=== PATIENT | female | born 2000 | race African-American/Black ===

== ENCOUNTER 2021-06-06 07:58 | Day surgery (SDC) | payer OTHER ==
[2021-06-06] MEDS ORDERED: Acetaminophen 500 MG TAB PO SCH (08:30)
[2021-06-06] MEDS ORDERED: Iron Sucrose Complex 500 MG in Sodium Chloride 0.9% 250 ML 250 ML IVPB SCH (09:00)
[2021-06-06] MEDS ORDERED: hydrALAZINE 20 MG/ML VIAL SLOW IVP PRN (09:02)
[2021-06-09 20:50] LABS: Chlam.trachomatis by PCR,Urine DETECTED (NotDetected)
== END 2021-06-06 13:20 | disposition home or self-care (01) ==
LOC: CSHLD/OP 07:58
PROVIDERS: ATTEND Family Medicine
DX: O99.012 Anemia complicating pregnancy, second trimester (principal); D50.9 Iron deficiency anemia, unspecified; O10.012 Pre-existing essential hypertension complicating pregnancy, second trimester; O99.212 Obesity complicating pregnancy, second trimester; Z3A.26 26 weeks gestation of pregnancy; Z79.899 Other long term (current) drug therapy
CPT/HCPCS: 87491; 87591; 96365; 96366; 99282; J1756; J7050

== ENCOUNTER 2021-07-22 19:59 | Inpatient (IN) | payer OTHER ==
[2021-07-22] MEDS ORDERED: hydrALAZINE 20 MG/ML VIAL ONE (20:58)
[2021-07-22] MEDS: hydrALAZINE 20 MG/ML VIAL SLOW IVP PRN (21:07)
[2021-07-22] MEDS ORDERED: Ondansetron PF 4 MG/2 ML Vial IVP PRN (21:09)
[2021-07-22] MEDS ORDERED: Acetaminophen 500 MG TAB PO PRN (21:09)
[2021-07-22] MEDS ORDERED: Promethazine HCl 25 MG/ML VIAL IM PRN (21:09)
[2021-07-22] MEDS ORDERED: Calcium Gluc 4.6 MEQ/10 ML (100 MG/ML) SLOW IVP PRN (21:09)
[2021-07-22] MEDS ORDERED: Magnesium Sulfate 20 GM/WATER 500 ML BAG IVPB SCH (21:15)
[2021-07-22 21:58] LABS: #Monocytes 0.6 10x3/uL (0.0-1.1); #Neutrophils 5.4 10x3/uL (1.5-8.4); %Basophils 0.1 % (0.0-2.0); %Eosinophils 0.3 % (0.0-6.0); %Lymphocytes 23.2 % (18.0-47.0); %Monocytes 7.3 % (0.0-10.0); %Neutrophils 68.7 % (40.0-75.0); Hemoglobin 9.9 g/dL (12.0-15.5); Mean Corpuscular HGB CONC 32.7 g/dL (32.0-36.0); Mean Corpuscular Volume 85.6 fl (81.6-98.3); Mean Platelet Volume 11.7 fl (7.4-10.4); Platelet Count 245 10x3/uL (150-450); RBC Distribution Width 13.1 % (11.5-14.5); Red Blood Cell (RBC) Count 3.54 10x6/uL (3.90-5.03); White Blood Cell (WBC) Count 7.8 10x3/uL (3.5-10.5)
[2021-07-22] MEDS: Betamet Acet/Betamet Na Ph 30 MG/5 ML VIAL IM SCH (22:00)
[2021-07-22 22:11] LABS: ALT (SGPT) Less than 6 U/L (8-55); AST (SGOT) 11 U/L (5-34); Albumin 3.6 g/dL (3.5-5.0); Alkaline Phosphatase 124 U/L (40-110); Anion Gap 14 mmol/L (10-20); BUN (Urea Nitrogen) 4 mg/dL (7.0-18.7); Bilirubin, Total 0.2 mg/dL (0.2-1.2); Calc. Creatinine Clearance 0 mL/min (70-130); Calcium 8.6 mg/dL (7.8-10.44); Carbon Dioxide 21 mmol/L (22-29); Chloride 106 mmol/L (98-107); Globulin 3.2 g/dL (2.4-3.5); Glucose 94 mg/dL (70-105); Potassium 3.5 mmol/L (3.5-5.1); Protein, Total 6.8 g/dL (6.0-8.3); Sodium 137 mmol/L (136-145)
[2021-07-22 22:13] LABS: Bilirubin Neg (Negative); Blood, Urine Negative (Negative); Clarity Clear (Clear); Glucose, Urine (Dipstick) Normal (Negative); Ketone, Urine 5 mg/dL (Negative); Leukocyte Negative (Negative); Nitrite Negative (Negative); Protein, Urine (Dipstick) 30 mg/dl (Neg-Trace); pH, Urine 6.5 (5.0-9.0)
[2021-07-22 22:21] LABS: Urine Culture Reflex No No
[2021-07-22 22:23] LABS: Bacteria/HPF Rare-Few HPF (None Seen); RBC/HPF 0-3 HPF (0-3); WBC/HPF 0-3 HPF (0-3)
[2021-07-22 22:30] LABS: Syphilis Antibody Nonreactive (Nonreactive); Syphilis Antibody Index 0.13 S/CO (<1.00 Non-Reactive)
[2021-07-22 22:31] LABS: HIV (1/2) Antibody/Antigen Non-Reactive (NonReactive); HIV 1/2 INDEX 0.17 S/CO (<1.00); Hep B Surf Ag Non-Reactive S/CO (NonReactive)
[2021-07-22 22:32] LABS: Creatinine, Urine 229.94 mg/dL (47-110)
[2021-07-22 22:38] LABS: HBSAg Index 0.18 S/CO (0-0.99)
[2021-07-22 23:41] LABS: SARS-CoV-2 NAA Rapid Test Not Detected (NotDetected)
[2021-07-23] MEDS: hydrALAZINE 20 MG/ML VIAL SLOW IVP PRN (00:43)
[2021-07-23] MEDS ORDERED: Magnesium Sulfate 20 gm/500 ml 20 GM/500 ML BAG ONE ×2 (02:09→08:44)
[2021-07-23 07:01] LABS: #Monocytes 0.1 10x3/uL (0.0-1.1); #Neutrophils 6.2 10x3/uL (1.5-8.4); %Monocytes 1.5 % (0.0-10.0); %Neutrophils 84.9 % (40.0-75.0); Hemoglobin 10.1 g/dL (12.0-15.5); Mean Corpuscular HGB CONC 32.6 g/dL (32.0-36.0); Mean Corpuscular Hemoglobin 28.1 pg (27.0-33.0); Mean Corpuscular Volume 86.4 fl (81.6-98.3); Platelet Count 247 10x3/uL (150-450); RBC Distribution Width 13.2 % (11.5-14.5); Red Blood Cell (RBC) Count 3.59 10x6/uL (3.90-5.03); White Blood Cell (WBC) Count 7.3 10x3/uL (3.5-10.5)
[2021-07-23 07:03] LABS: ALT (SGPT) Less than 6 U/L (8-55); AST (SGOT) 13 U/L (5-34); Albumin 3.4 g/dL (3.5-5.0); Alkaline Phosphatase 119 U/L (40-110); Anion Gap 14 mmol/L (10-20); BUN (Urea Nitrogen) Less than 4 mg/dL (7.0-18.7); Bilirubin, Total 0.3 mg/dL (0.2-1.2); Calc. Creatinine Clearance 242 mL/min (70-130); Calcium 7.9 mg/dL (7.8-10.44); Carbon Dioxide 18 mmol/L (22-29); Chloride 108 mmol/L (98-107); Globulin 3.6 g/dL (2.4-3.5); Glucose 115 mg/dL (70-105); Potassium 3.9 mmol/L (3.5-5.1); Sodium 136 mmol/L (136-145)
[2021-07-23] MEDS ORDERED: Prenatal Vitamin 1 TAB PO SCH (09:45)
[2021-07-23] MEDS ORDERED: Ferrous Sulfate 325 MG TAB PO SCH (09:45)
[2021-07-23] MEDS: Aspirin 81 mg Enteric Coated Tablet PO SCH (11:05)
[2021-07-23] MEDS ORDERED: Labetalol 100 MG TAB PO SCH (14:15)
[2021-07-23] MEDS: Ferrous Sulfate 325 MG TAB PO SCH (17:32)
[2021-07-23] MEDS: Labetalol 100 MG TAB PO SCH (21:49)
[2021-07-23] MEDS: Betamet Acet/Betamet Na Ph 30 MG/5 ML VIAL IM SCH (21:49)
[2021-07-24 06:10] LABS: AST (SGOT) 10 U/L (5-34); Calc. Creatinine Clearance 234 mL/min (70-130); Uric Acid 3.7 mg/dL (2.6-6.0)
[2021-07-24 06:50] LABS: Platelet Count 240 10x3/uL (150-450)
[2021-07-24] MEDS: Labetalol 100 MG TAB PO SCH (08:43)
[2021-07-24] MEDS: Ferrous Sulfate 325 MG TAB PO SCH (08:43)
[2021-07-24] MEDS ORDERED: Prenatal Vitamin 1 TAB PO SCH (09:00)
[2021-07-24] MEDS ORDERED: Aspirin 81 mg Enteric Coated Tablet PO SCH (09:00)
[2021-07-24] MEDS: Aspirin 81 mg Enteric Coated Tablet PO SCH (09:56)
[2021-07-24 11:42] VITALS: BP 125/73; TEMP 98.4
== END 2021-07-24 15:45 | disposition home or self-care (01) | DRG 833 ==
LOC: CSHLD/OP 19:59 → CSHLD 21:09 → UNDOADMIN 07-23 05:28 → CSHLD 07-23 05:28 → CSHANTE 07-23 14:55
PROVIDERS: ADMIT Student in an Organized Health Care Education/Training Program; ATTEND Student in an Organized Health Care Education/Training Program
DX: O11.3 Pre-existing hypertension with pre-eclampsia, third trimester (principal); Z3A.33 33 weeks gestation of pregnancy; D50.9 Iron deficiency anemia, unspecified; K21.9 Gastro-esophageal reflux disease without esophagitis; Z20.822 Contact with and (suspected) exposure to COVID-19; O99.613 Diseases of the digestive system complicating pregnancy, third trimester
CPT/HCPCS: 36415; 76815; 76819; 80053; 81001; 82565; 82570; 84156; 84450; 84550; 85025; 85049; 85384; 86780; 86850; 86900; 86901; 87081; 87340; 87389; 87480; 87491; 87510; 87591; 87660; 99285; J0360; J0702; J3475; U0002

== ENCOUNTER 2021-08-13 16:31 | Inpatient (IN) | payer OTHER ==
[~2021-08-13 16:31] MED LIST: Bupivacaine 0.25% HCL 30 ML VIAL ONE
[2021-08-13] MEDS ORDERED: Labetalol HCl 100 MG/20 ML VIAL SLOW IVP PRN (17:18)
[2021-08-13] MEDS ORDERED: hydrALAZINE 20 MG/ML VIAL SLOW IVP PRN (17:18)
[2021-08-13] MEDS ORDERED: hydrALAZINE 20 MG/ML VIAL ONE ×2 (17:23→17:45)
[2021-08-13] MEDS ORDERED: Calcium Gluc 4.6 MEQ/10 ML (100 MG/ML) SLOW IVP PRN (17:26)
[2021-08-13] MEDS ORDERED: Magnesium Sulfate 20 GM/WATER 500 ML BAG IVPB SCH (17:30)
[2021-08-13] MEDS ORDERED: Labetalol HCl 100 MG/20 ML VIAL ONE (17:45)
[2021-08-13] MEDS ORDERED: Magnesium Sulfate 20 gm/500 ml 20 GM/500 ML BAG ONE (17:45)
[2021-08-13] MEDS ORDERED: Ondansetron PF 4 MG/2 ML Vial IVP PRN (18:07)
[2021-08-13] MEDS ORDERED: Lidocaine 1% (PF) 30 ML VIAL SC PRN (18:07)
[2021-08-13] MEDS ORDERED: NS w/ Oxytocin 30 units 500 ML IV SCH ×2 (18:15)
[2021-08-13] MEDS: Magnesium Sulfate 20 gm/500 ml 20 GM/500 ML BAG IVPB SCH (18:15)
[2021-08-13 18:36] LABS: #Monocytes 0.6 10x3/uL (0.0-1.1); #Neutrophils 4.6 10x3/uL (1.5-8.4); %Eosinophils 0.3 % (0.0-6.0); %Lymphocytes 22.2 % (18.0-47.0); %Monocytes 8.6 % (0.0-10.0); %Neutrophils 68.5 % (40.0-75.0); Hemoglobin 9.5 g/dL (12.0-15.5); Mean Corpuscular HGB CONC 32.2 g/dL (32.0-36.0); Mean Corpuscular Hemoglobin 27.7 pg (27.0-33.0); Mean Platelet Volume 11.7 fl (7.4-10.4); Platelet Count 225 10x3/uL (150-450); RBC Distribution Width 13.2 % (11.5-14.5); Red Blood Cell (RBC) Count 3.43 10x6/uL (3.90-5.03); White Blood Cell (WBC) Count 6.8 10x3/uL (3.5-10.5)
[2021-08-13 18:47] LABS: ALT (SGPT) Less than 6 U/L (8-55); AST (SGOT) 11 U/L (5-34); Albumin 3.3 g/dL (3.5-5.0); Alkaline Phosphatase 162 U/L (40-110); Anion Gap 12 mmol/L (10-20); BUN (Urea Nitrogen) 4 mg/dL (7.0-18.7); Bilirubin, Total 0.3 mg/dL (0.2-1.2); Calc. Creatinine Clearance 0 mL/min (70-130); Calcium 8.6 mg/dL (7.8-10.44); Carbon Dioxide 23 mmol/L (22-29); Chloride 105 mmol/L (98-107); Globulin 3.6 g/dL (2.4-3.5); Glucose 94 mg/dL (70-105); Potassium 3.3 mmol/L (3.5-5.1); Protein, Total 6.9 g/dL (6.0-8.3); Sodium 137 mmol/L (136-145); Uric Acid 3.3 mg/dL (2.6-6.0)
[2021-08-13] MEDS ORDERED: Acetaminophen 500 MG TAB PO SCH (19:00)
[2021-08-13 19:07] VITALS: BMI 33.0
[2021-08-13 19:07] LABS: Hep B Surf Ag Non-Reactive S/CO (NonReactive); Syphilis Antibody Nonreactive (Nonreactive); Syphilis Antibody Index 0.16 S/CO (<1.00 Non-Reactive)
[2021-08-13] MEDS: Misoprostol 100 MCG TAB VAG SCH ×2 (19:08→22:39)
[2021-08-13 19:20] LABS: HBSAg Index 0.19 S/CO (0-0.99)
[2021-08-13] MEDS: Labetalol HCl 200 MG TAB PO SCH (19:28)
[2021-08-13 20:29] LABS: Creatinine, Urine Less than 20.00 mg/dL (47-110); Protein, Urine Random Quant Less than 10 mg/dL (1-14)
[2021-08-13] MEDS ORDERED: Azithromycin 250 MG TAB PO SCH (20:45)
[2021-08-13 21:04] LABS: SARS-CoV-2 NAA Rapid Test DETECTED (NotDetected)
[2021-08-13] MEDS: hydrALAZINE 20 MG/ML VIAL SLOW IVP PRN (22:35)
[2021-08-14] MEDS: Acetaminophen 325 MG TAB PO PRN ×2 (02:06→08:27)
[2021-08-14] MEDS: Magnesium Sulfate 20 gm/500 ml 20 GM/500 ML BAG IVPB SCH ×2 (05:43→13:09)
[2021-08-14] MEDS: Lactated Ringer's 1,000 ML IV SCH (07:04)
[2021-08-14] MEDS: hydrALAZINE 20 MG/ML VIAL SLOW IVP PRN (09:41)
[2021-08-14] MEDS ORDERED: Metoclopramide HCl 10 MG TAB PO SCH (11:00)
[2021-08-14] MEDS ORDERED: diphenhydrAMINE 25 MG CAP PO SCH (12:00)
[2021-08-14] MEDS ORDERED: hydrALAZINE 20 MG/ML VIAL SLOW IVP PRN ×2 (12:59→22:25)
[2021-08-14 17:46] LABS: HIV (1/2) Antibody/Antigen Non-Reactive (NonReactive); HIV 1/2 INDEX 0.13 S/CO (<1.00)
[2021-08-14] MEDS ORDERED: Fentanyl 2 mcg/Bup 0.1% Cadd 100 ML ONE (18:14)
[2021-08-14] MEDS ORDERED: Acetaminophen 325 MG TAB PO PRN (18:47)
[2021-08-14] MEDS ORDERED: diphenhydrAMINE 50 MG/ML VIAL IVP PRN (18:47)
[2021-08-14] MEDS ORDERED: Ondansetron PF 4 MG/2 ML Vial IVP PRN ×2 (18:47→22:25)
[2021-08-14] MEDS ORDERED: Hydrocerin (Eucerin) Cream 120 gm Jar TOP PRN (18:47)
[2021-08-14] MEDS ORDERED: ePHEDrine Sulfate 50 MG/10 ML VIAL SLOW IVP PRN (18:47)
[2021-08-14] MEDS ORDERED: Lactated Ringer's 500 ML IV PRN (18:47)
[2021-08-14] MEDS ORDERED: Naloxone HCl 0.4 mg/ml Vial IVP PRN ×2 (18:47)
[2021-08-14] MEDS ORDERED: Promethazine HCl 25 MG/ML VIAL IM PRN ×2 (18:47→22:25)
[2021-08-14] MEDS ORDERED: Communication Order-Pharmacy FS SCH (19:00)
[2021-08-14] MEDS ORDERED: Fentanyl 2 mcg/Bupivacaine 0.1% Cassette 100 ML EPIDURAL SCH (19:00)
[2021-08-14] MEDS ORDERED: Misoprostol 200 MCG TAB ONE (19:25)
[2021-08-14] MEDS ORDERED: Methylergonovine 0.2 MG/ML VIAL ONE (19:26)
[2021-08-14] MEDS ORDERED: Carboprost 250 MCG/ML AMP ONE (19:26)
[2021-08-14] MEDS: Labetalol HCl 200 MG TAB PO SCH (21:04)
[2021-08-14] MEDS ORDERED: Benzocaine-Menthol 82.5 ML CAN TOP PRN (22:25)
[2021-08-14] MEDS ORDERED: Lanolin Ointment 7 GM TUBE TOP PRN (22:25)
[2021-08-14] MEDS ORDERED: Milk Of Magnesia 30 ML UDCUP PO PRN (22:25)
[2021-08-14] MEDS ORDERED: Bisacodyl 10 MG SUPP PR PRN (22:25)
[2021-08-14] MEDS ORDERED: Preparation H Ointment 28 GM TUBE PR PRN (22:25)
[2021-08-14] MEDS ORDERED: Magnesium Sulfate 20 gm/500 ml 20 GM/500 ML BAG IVPB SCH (22:25)
[2021-08-14] MEDS ORDERED: Boostrix 0.5 ML (Tdap) VIAL IM ONE (22:25)
[2021-08-14] MEDS ORDERED: diphenhydrAMINE 25 MG CAP PO PRN (22:25)
[2021-08-14] MEDS ORDERED: Calcium Gluconate 4.6 MEQ in Sodium Chloride 0.9% 100 ML IVPB PRN (22:25)
[2021-08-14] MEDS ORDERED: Ibuprofen 800 MG TAB PO SCH (22:30)
[2021-08-15] MEDS ORDERED: hydrALAZINE 20 MG/ML VIAL SLOW IVP PRN ×2 (02:02→02:03)
[2021-08-15] MEDS ORDERED: hydrALAZINE 20 MG/ML VIAL ONE (02:08)
[2021-08-15 07:39] LABS: Hemoglobin 10.7 g/dL (12.0-15.5); Mean Corpuscular HGB CONC 32.5 g/dL (32.0-36.0); Mean Corpuscular Hemoglobin 27.9 pg (27.0-33.0); Mean Corpuscular Volume 85.9 fl (81.6-98.3); Mean Platelet Volume 11.2 fl (7.4-10.4); Platelet Count 242 10x3/uL (150-450); RBC Distribution Width 13.6 % (11.5-14.5); Red Blood Cell (RBC) Count 3.83 10x6/uL (3.90-5.03); White Blood Cell (WBC) Count 10.3 10x3/uL (3.5-10.5)
[2021-08-15] MEDS: Labetalol HCl 100 MG TAB PO SCH ×3 (08:57→21:13)
[2021-08-15] MEDS: Prenatal Vitamin 1 TAB PO SCH (08:58)
[2021-08-15] MEDS: Docusate 100 MG CAP PO SCH ×2 (08:58→21:52)
[2021-08-15] MEDS: Ferrous Sulfate 325 MG TAB PO SCH ×2 (08:59→20:31)
[2021-08-15] MEDS: Ibuprofen 800 MG TAB PO SCH ×3 (08:59→21:52)
[2021-08-15] MEDS: Lactated Ringer's 1,000 ML IV SCH (10:14)
[2021-08-16] MEDS: Ibuprofen 800 MG TAB PO SCH ×3 (05:52→21:47)
[2021-08-16] MEDS: Ferrous Sulfate 325 MG TAB PO SCH ×2 (08:04→18:18)
[2021-08-16] MEDS: Prenatal Vitamin 1 TAB PO SCH (08:15)
[2021-08-16] MEDS: Docusate 100 MG CAP PO SCH ×2 (08:15→21:48)
[2021-08-16] MEDS: Labetalol HCl 100 MG TAB PO SCH ×3 (08:15→21:48)
[2021-08-16] MEDS ORDERED: Amlodipine 10 MG TAB PO SCH (09:30)
[2021-08-17] MEDS: Ibuprofen 800 MG TAB PO SCH (05:29)
[2021-08-17 05:31] VITALS: TEMP 98.5
[2021-08-17 08:45] VITALS: BP 159/94
[2021-08-17] MEDS: Labetalol HCl 100 MG TAB PO SCH (08:46)
[2021-08-17] MEDS: Docusate 100 MG CAP PO SCH (08:46)
[2021-08-17] MEDS: Ferrous Sulfate 325 MG TAB PO SCH (08:47)
[2021-08-17] MEDS: Prenatal Vitamin 1 TAB PO SCH (08:47)
[2021-08-17] MEDS: Misoprostol 100 MCG TAB VAG SCH (08:50)
[2021-08-17] MEDS: Labetalol HCl 200 MG TAB PO SCH (08:51)
[2021-08-17] MEDS: Lactated Ringer's 1,000 ML IV SCH (08:51)
[2021-08-17] MEDS ORDERED: Amlodipine 10 MG TAB PO SCH (09:00)
== END 2021-08-17 13:55 | disposition home or self-care (01) | DRG 805 ==
LOC: CSHLD/OP 16:31 → CSHLD 19:31 → CSHANTE 08-15 21:38
PROVIDERS: ADMIT Student in an Organized Health Care Education/Training Program; ATTEND Student in an Organized Health Care Education/Training Program
PROC: 3E0DXGC Introduction of Other Therapeutic Substance into Mouth and Pharynx, External Approach (ICD-10-PCS; 2021-08-13)
PROC: 8E0ZXY6 Isolation (ICD-10-PCS; 2021-08-13)
PROC: 10E0XZZ Delivery of Products of Conception, External Approach (ICD-10-PCS; principal; 2021-08-14)
PROC: 10907ZC Drainage of Amniotic Fluid, Therapeutic from Products of Conception, Via Natural or Artificial Opening (ICD-10-PCS; 2021-08-14)
PROC: 10H07YZ Insertion of Other Device into Products of Conception, Via Natural or Artificial Opening (ICD-10-PCS; 2021-08-14)
DX: O11.4 Pre-existing hypertension with pre-eclampsia, complicating childbirth (principal); U07.1 COVID-19; Z37.0 Single live birth; O98.82 Other maternal infectious and parasitic diseases complicating childbirth; O98.52 Other viral diseases complicating childbirth; Z3A.36 36 weeks gestation of pregnancy; O69.81X0 Labor and delivery complicated by cord around neck, without compression, not applicable or unspecified; O10.92 Unspecified pre-existing hypertension complicating childbirth; O99.02 Anemia complicating childbirth; D64.9 Anemia, unspecified; A74.9 Chlamydial infection, unspecified; O69.89X0 Labor and delivery complicated by other cord complications, not applicable or unspecified; Z28.21 Immunization not carried out because of patient refusal; Z79.899 Other long term (current) drug therapy; O99.214 Obesity complicating childbirth; O70.0 First degree perineal laceration during delivery
CPT/HCPCS: 36415; 51702; 80053; 81003; 82570; 83735; 84156; 84550; 85025; 85027; 86780; 86850; 86900; 86901; 87340; 87389; 99285; J0360; J2590; J3475; J7120; S0020; U0002